=== PATIENT | female | born 1990 | race Caucasian/White ===

== ENCOUNTER 2020-01-18 00:45 | Emergency (ER) | payer OTHER ==
[~2020-01-18] VITALS: Ht 157.5 cm; Wt 81.7 kg
[~2020-01-18 00:45] MED LIST: BACTRIM DS TAB1 EACH PO; KEFLEX500 MG PO; MACROBID 100 M100 M1 PO; NAPROSYN500 MG PO; NOHOMEMEDICATIONS; NORCO 5-325 TA1 EACH PO; PRENATAL; ULTRAM 50MG TAB50 MG PO; VICODIN 5-5001 EACH PO; ZPAK PO
[2020-01-18 02:14] LABS: CALCIUM 8.6 mg/dL (8.5-10.1); POTASSIUM 3.6 mmol/L (3.5-5.1)
[2020-01-18 02:15] VITALS: BP 142/95
[2020-01-18 02:18] LABS: ABSOLUTE BASOPHILS 0.1 thou/uL (0.0-0.2); ABSOLUTE EOSINOPHILS 0.2 thou/uL (0.0-0.7); ABSOLUTE LYMPHOCYTES 2.5 thou/uL (0.8-5.3); ABSOLUTE MONOCYTES 0.6 thou/uL (0.0-1.2); ABSOLUTE NEUTROPHILS 7.5 thou/uL (1.6-8.1); ALBUMIN 3.4 g/dL (3.4-5.0); BASOPHILS 0.5 %; EOSINOPHILS 1.7 %; HEMATOCRIT 39.6 % (37.0-47.0); HEMOGLOBIN 13.5 gm/dL (12.0-15.0); LYMPHOCYTES 23.3 %; MCH 29.4 pg (26.0-34.0); MCHC 34.2 g/dL (28.0-37.0); MONOCYTES 5.6 %; NUCLEATED RBCS 0 /100WBC; PLATELET COUNT* 329 thou/uL (150-400); POLYS 68.9 %; RBC 4.61 mil/uL (4.20-5.00); RDW-CV 13.5 % (10.5-14.5); TOTAL BILIRUBIN 0.4 mg/dL (<0.1-1.0); TOTAL PROTEIN 6.9 g/dL (6.4-8.2); WBC 10.8 thou/uL (4.0-11.0)
== END 2020-01-18 02:16 | disposition left against medical advice (07) ==
LOC: M.ERS 00:45
PROVIDERS: Personal Emergency Response Attendant
DX: R10.9 Unspecified abdominal pain (principal); Z87.442 Personal history of urinary calculi; Z88.1 Allergy status to other antibiotic agents

== ENCOUNTER 2020-01-29 03:07 | Emergency (ER) | payer OTHER ==
[~2020-01-29] VITALS: Ht 157.5 cm; Wt 77.1 kg
[2020-01-29 03:26] LABS: URINE BILIRUBIN NEGATIVE (Negative); URINE BLOOD NEGATIVE (Negative); URINE CLARITY CLEAR; URINE COLOR YELLOW; URINE GLUCOSE-RANDOM NEGATIVE (Negative); URINE KETONES NEGATIVE (Negative); URINE LEUKOCYTES NEGATIVE (Negative); URINE NITRITE NEGATIVE (Negative); URINE PROTEIN NEGATIVE (Negative); URINE SPECIFIC GRAVITY 1.025 (1.005-1.030); URINE UROBILINOGEN 0.2 E.U./dl (0.2-1.0)
[2020-01-29] MEDS ORDERED: NORCO 5-325 TA1 EAC2 PO (03:44)
[2020-01-29] MEDS ORDERED: FLEXERIL PO (03:44)
[2020-01-29 03:47] VITALS: BP 140/93
== END 2020-01-29 03:47 | disposition home or self-care (01) ==
LOC: M.ERS 03:07
PROVIDERS: Family Medicine
DX: M54.5 Low back pain (principal); F17.210 Nicotine dependence, cigarettes, uncomplicated; Z88.1 Allergy status to other antibiotic agents; Z88.8 Allergy status to other drugs, medicaments and biological substances

== ENCOUNTER 2020-05-22 23:59 | Emergency (ER) | payer OTHER ==
[~2020-05-22] VITALS: Ht 157.5 cm; Wt 98.5 kg
[~2020-05-22 23:59] MED LIST changes: +CLEOCIN HCL150 M1 PO; +FLEXERIL PO; +HYDROCODON-ACE1 EAC7 PO; +IBUPROFEN 800800 MG PO; +NORCO 5-325 TA1 EAC2 PO
[2020-05-23 00:06] VITALS: BP 162/109
[2020-05-23] MEDS ORDERED: HYDROCODON-ACE1 EAC8 PO (00:14)
[2020-05-23] MEDS ORDERED: KEFLEX500 M1 PO (00:14)
== END 2020-05-23 00:22 | disposition home or self-care (01) ==
LOC: M.ERS 23:59
DX: K02.9 Dental caries, unspecified (principal); Z88.1 Allergy status to other antibiotic agents; Z88.8 Allergy status to other drugs, medicaments and biological substances

== ENCOUNTER 2020-08-08 10:50 | Emergency (ER) | payer OTHER ==
[~2020-08-08] VITALS: Ht 157.5 cm; Wt 81.7 kg
[~2020-08-08 10:50] MED LIST changes: +HYDROCODON-ACE1 EAC8 PO; +KEFLEX500 M1 PO
[2020-08-08 10:58] VITALS: BP 166/115
[2020-08-08] MEDS ORDERED: NORCO5 PO ×2 (11:06→11:08)
[2020-08-08] MEDS ORDERED: CLEOCIN HCL300 MG PO (11:06)
== END 2020-08-08 11:21 | disposition home or self-care (01) ==
LOC: M.ERS 10:50
DX: K02.9 Dental caries, unspecified (principal); K05.10 Chronic gingivitis, plaque induced; Z88.1 Allergy status to other antibiotic agents; Z88.8 Allergy status to other drugs, medicaments and biological substances; Z98.51 Tubal ligation status

== ENCOUNTER 2020-12-06 22:24 | Emergency (ER) | payer OTHER ==
[~2020-12-06] VITALS: Ht 157.5 cm; Wt 81.7 kg
[~2020-12-06 22:24] MED LIST changes: +CLEOCIN HCL300 MG PO; +NORCO5 PO
[2020-12-07 00:35] VITALS: BP 176/99
== END 2020-12-07 00:36 | disposition left against medical advice (07) ==
LOC: M.ERS 22:24
DX: K08.89 Other specified disorders of teeth and supporting structures (principal); Z53.21 Procedure and treatment not carried out due to patient leaving prior to being seen by health care provider

== ENCOUNTER 2021-01-20 15:42 | Emergency (ER) | payer OTHER ==
[~2021-01-20] VITALS: Ht 157.5 cm; Wt 81.7 kg
[2021-01-20 16:29] VITALS: BP 138/92
== END 2021-01-20 16:29 | disposition left against medical advice (07) ==
LOC: M.ERS 15:42
DX: J34.89 Other specified disorders of nose and nasal sinuses (principal); Z53.21 Procedure and treatment not carried out due to patient leaving prior to being seen by health care provider; Z88.1 Allergy status to other antibiotic agents; Z91.09 Other allergy status, other than to drugs and biological substances